=== PATIENT | female | born 1965 | race Caucasian/White ===

== ENCOUNTER 2025-10-22 19:20 | Inpatient (IN) | payer MEDICAID, OTHER ==
[~2025-10-22] VITALS: Ht 139.7 cm; Wt 51.7 kg
[2025-10-22 19:33] VITALS: O2SAT 98
[2025-10-22] MEDS: TETANUS, DIPHTHERIA, PERTUSSIS VAC/PF 0.5ML (>10YR OLD) IM ONE (20:11)
[2025-10-22] MEDS: ONDANSETRON HCL 4MG/2ML INJ IV ONE (23:04)
[2025-10-22] MEDS: MORPHINE SULFATE 4 MG/ML INJ (FOR IV/IM USE) IV ONE (23:05)
[2025-10-22 23:22] LABS: BASOPHILS % 0.4 % (0.0-2.0); EOSINOPHILS % 2.0 % (0.0-5.0); HEMATOCRIT. 30.2 % (36.0-48.0); HEMOGLOBIN. 10.2 g/dL (12.0-16.0); LYMPHOCYTES % 20.4 % (20.0-50.0); MEAN PLATELET VOLUME 8.9 fl (7.4-10.4); MONOCYTES % 5.4 % (2.0-8.0); NEUTROPHILS % 71.8 % (40.0-76.0); PLATELET 278 x1000/uL (130-400); RED BLOOD CELL COUNT 3.25 mill/uL (4.2-5.4); RED CELL DISTRIBUTION WIDTH 12.7 % (11.6-14.6)
[2025-10-22 23:32] LABS: CREATININE 1.5 mg/dL (0.6-1.0)
[2025-10-22 23:33] LABS: INR 1.0; UREA NITROGEN BLOOD 29 mg/dL (9-23)
[2025-10-22 23:34] LABS: ASPARTATE AMINOTRANSFERASE 14 IU/L (<34)
[2025-10-22 23:35] LABS: BILIRUBIN DIRECT < 0.1 mg/dL (<=3.0); BILIRUBIN TOTAL 0.4 mg/dL (0.1-1.0); PROTEIN TOTAL 7.7 g/dL (6.0-8.3)
[2025-10-23] MEDS: LABETALOL 5MG/ML 4ML INJ IV ONE (03:05)
[2025-10-23 05:44] VITALS: BP 155/70; PULSE 79; RESP 20; TEMP 37.7524
[2025-10-23] MEDS ORDERED: METF-416 PO (06:30)
[2025-10-23] MEDS ORDERED: januvia (06:30)
[2025-10-23] MEDS ORDERED: NALOXONE HCL 0.4MG/ML VIAL IV PRN (07:00)
[2025-10-23] MEDS ORDERED: BLOOD SUGAR DIAGNOSTIC STRIP TEST SCH (07:10)
[2025-10-23] MEDS ORDERED: DEXTROSE 50% WATER 50ML SYRINGE IV PRN (07:15)
[2025-10-23] MEDS: BLOOD SUGAR DIAGNOSTIC STRIP TEST SCH (07:30)
[2025-10-23 08:30] VITALS: BP 159/80; PULSE 90; RESP 18; TEMP 36.9; O2SAT 97
[2025-10-23] MEDS: INSULIN LISPRO 100 UNITS/ML SUBCUT SCH (09:52)
[2025-10-23] MEDS: LOSARTAN 50 MG TABLET PO SCH (09:54)
[2025-10-23] MEDS: INSULIN GLARGINE 100 UNITS/ML SUBCUT SCH (11:29)
[2025-10-23 12:00] VITALS: BP 155/71; PULSE 82; RESP 18; TEMP 36.7; O2SAT 98
[2025-10-23] MEDS: MORPHINE SULFATE 2 MG/ML INJ (NOT FOR IM USE) IV PRN (15:04)
[2025-10-23 16:00] VITALS: BP 160/77; PULSE 86; RESP 18; TEMP 36.6; O2SAT 97
[2025-10-23 20:00] VITALS: BP 170/75; PULSE 89; RESP 18; TEMP 36.5; O2SAT 98
[2025-10-23 22:01] LABS: BASOPHILS % 0.4 % (0.0-2.0); EOSINOPHILS % 6.2 % (0.0-5.0); HEMATOCRIT. 27.8 % (36.0-48.0); HEMOGLOBIN. 9.4 g/dL (12.0-16.0); LYMPHOCYTES % 36.8 % (20.0-50.0); MEAN PLATELET VOLUME 9.1 fl (7.4-10.4); MONOCYTES % 8.2 % (2.0-8.0); NEUTROPHILS % 48.4 % (40.0-76.0); PLATELET 230 x1000/uL (130-400); RED BLOOD CELL COUNT 2.97 mill/uL (4.2-5.4); RED CELL DISTRIBUTION WIDTH 12.8 % (11.6-14.6)
[2025-10-23 22:35] LABS: CREATININE 1.7 mg/dL (0.6-1.0); TRIGLYCERIDE 225.0 mg/dL (0-150); UREA NITROGEN BLOOD 25.0 mg/dL (9-23)
[2025-10-23 22:36] LABS: LDL CHOLESTEROL 192.0 mg/dL (5-100)
[2025-10-24] VITALS: BP 130/73; PULSE 87; RESP 18; TEMP 36.6
[2025-10-24 04:00] VITALS: BP 165/80; PULSE 98; RESP 18; TEMP 36.1; O2SAT 98
[2025-10-24 08:00] VITALS: BP 142/70; PULSE 75; RESP 17; TEMP 36.4; O2SAT 97
[2025-10-24 12:00] VITALS: BP 146/72; PULSE 89; RESP 18; TEMP 36.7; O2SAT 98
[2025-10-24 16:00] VITALS: BP_SYST 139; BP_SYST 155; BP_DIAS 75; BP_DIAS 87; PULSE 92; PULSE 95; RESP 18; RESP 20; TEMP 36.4; TEMP 37; O2SAT 95; O2SAT 98
[2025-10-24 16:35] LABS: CLARITY URINE CLOUDY (CLEAR); COLOR URINE YELLOW (YELLOW); GLUCOSE URINE NEGATIVE (NEGATIVE); KETONES URINE NEGATIVE (NEGATIVE); LEUKOCYTE ESTERASE URINE 2+ (NEGATIVE); NITRITE URINE NEGATIVE (NEGATIVE); OCCULT BLOOD URINE TRACE (NEGATIVE); PH URINE 5.0 (4.5-8.0); PROTEIN URINE 3+ (NEGATIVE); SPECIFIC GRAVITY URINE 1.016 (1.005-1.030); UROBILINOGEN URINE 0.2 E.U./dL (0.2-1.0)
[2025-10-24 18:36] LABS: RBC URINE NONE SEEN /hpf (0-2); WBC URINE TNTC /hpf (0-2)
[2025-10-24 18:37] LABS: BACTERIA URINE TRACE; MUCUS URINE 1+ /lpf (< = 2+); SQUAMOUS EPITHELIAL CELL URINE 2+ /lpf (RARE/1+)
[2025-10-24 20:45] VITALS: BP 178/81; PULSE 85; RESP 18; TEMP 36.1; O2SAT 97
[2025-10-24] MEDS ORDERED: VANCOMYCIN HCL 1GM VIAL ONE (21:12)
[2025-10-24] MEDS ORDERED: FAMOTIDINE 20MG/2ML VIAL IV ONE (21:38)
[2025-10-24] MEDS ORDERED: ACETAMINOPHEN 1000MG/100ML 100 ML IV ONE (21:38)
[2025-10-24] MEDS ORDERED: PROPOFOL 10MG/ML 100ML 100 ML IV ONE (21:39)
[2025-10-24] MEDS ORDERED: ONDANSETRON HCL 4MG/2ML INJ ONE (21:42)
[2025-10-24] MEDS ORDERED: DEXAMETHASONE 4MG/ML 1ML VIAL ONE (21:42)
[2025-10-24] MEDS ORDERED: PROPOFOL 200MG/20ML VIAL IV ONE (21:43)
[2025-10-24] MEDS ORDERED: MIDAZOLAM HCL 2 MG/2 ML VIAL ONE (21:44)
[2025-10-24] MEDS ORDERED: PHENYLEPHRINE HCL 10MG/ML 1ML IV ONE (21:46)
[2025-10-24] MEDS ORDERED: HYDROMORPHONE HCL/PF 1MG/ML INJ ONE (22:10)
[2025-10-24] MEDS ORDERED: TRANEXAMIC ACID 1000MG PREMIX 100 ML IV ONE (22:13)
[2025-10-24] MEDS ORDERED: HYDRALAZINE 20MG/ML VIAL IV PRN (22:45)
[2025-10-24] MEDS ORDERED: LABETALOL 5MG/ML 4ML INJ IV PRN (22:45)
[2025-10-24] MEDS ORDERED: HYDROMORPHONE HCL/PF 1MG/ML INJ IV PRN (22:45)
[2025-10-24] MEDS: CEFAZOLIN 1000MG PREMIX 50 ML IV SCH (23:00)
[2025-10-24] MEDS: HYDRALAZINE 20MG/ML VIAL IV PRN (23:22)
[2025-10-24] MEDS: ONDANSETRON HCL 4MG/2ML INJ IV PRN (23:49)
[2025-10-25] MEDS: METOCLOPRAMIDE HCL 10MG/2ML VIAL IV NR (00:34)
[2025-10-25] MEDS: DIPHENHYDRAMINE 50MG/ML VIAL IV NR (00:41)
[2025-10-25 00:56] VITALS: BP 146/74; PULSE 112; RESP 18; TEMP 35.9; O2SAT 99
[2025-10-25 04:00] VITALS: BP 132/76; PULSE 101; RESP 18; TEMP 36.1; O2SAT 97
[2025-10-25 08:00] VITALS: BP 155/77; PULSE 110; RESP 18; TEMP 36.4; O2SAT 100
[2025-10-25] MEDS: ASPIRIN 325MG EC TABLET PO SCH (09:15)
[2025-10-25 12:15] VITALS: BP 148/84; PULSE 102; RESP 18; TEMP 36.4; O2SAT 100
[2025-10-25] MEDS: HYDROCODONE/ACETAMINOPHEN 5/325MG TABLET PO PRN (12:24)
[2025-10-25] MEDS: SODIUM CHLORIDE 0.45% 1,000 ML IV SCH (12:46)
[2025-10-25] MEDS: INSULIN LISPRO 100 UNITS/ML SUBCUT SCH (12:49)
[2025-10-25 16:00] VITALS: BP 155/58; PULSE 96; RESP 18; TEMP 37.1; O2SAT 100
[2025-10-25 20:00] VITALS: BP 160/71; PULSE 99; RESP 18; TEMP 36.2; O2SAT 97
[2025-10-25] MEDS ORDERED: ONDANSETRON HCL 4MG/2ML INJ IV PRN (20:30)
[2025-10-25] MEDS: ATORVASTATIN CALCIUM 40MG TABLET PO SCH (20:32)
[2025-10-25] MEDS: ONDANSETRON HCL 4MG/2ML INJ IV PRN (20:32)
[2025-10-25] MEDS: METOPROLOL TARTRATE 25MG TABLET PO SCH (20:35)
[2025-10-26] VITALS: BP_SYST 112; BP_SYST 145; BP_SYST 160; BP_DIAS 57; BP_DIAS 68; BP_DIAS 71; PULSE 68; PULSE 99; RESP 18; TEMP 36.2; O2SAT 97; O2SAT 98
[2025-10-26 04:00] VITALS: BP_SYST 112; BP_SYST 145; BP_DIAS 57; BP_DIAS 68; PULSE 8; PULSE 86; RESP 1; RESP 18; TEMP 36.2; TEMP 36.6; O2SAT 98
[2025-10-26 08:00] VITALS: BP 119/63; PULSE 79; RESP 18; TEMP 36.5; O2SAT 100
[2025-10-26 09:06] LABS: BASOPHILS % 0.3 % (0.0-2.0); EOSINOPHILS % 4.5 % (0.0-5.0); HEMATOCRIT. 23.4 % (36.0-48.0); HEMOGLOBIN. 7.7 g/dL (12.0-16.0); LYMPHOCYTES % 38.6 % (20.0-50.0); MEAN PLATELET VOLUME 9.2 fl (7.4-10.4); MONOCYTES % 9.7 % (2.0-8.0); NEUTROPHILS % 46.9 % (40.0-76.0); PLATELET 191 x1000/uL (130-400); RED BLOOD CELL COUNT 2.48 mill/uL (4.2-5.4); RED CELL DISTRIBUTION WIDTH 12.5 % (11.6-14.6)
[2025-10-26 09:10] LABS: UREA NITROGEN BLOOD 28 mg/dL (9-23)
[2025-10-26 09:11] LABS: CREATININE 1.7 mg/dL (0.6-1.0)
[2025-10-26 09:13] LABS: ASPARTATE AMINOTRANSFERASE 16 IU/L (<34); BILIRUBIN DIRECT < 0.1 mg/dL (<=3.0); PHOSPHORUS 3.4 mg/dL (2.5-4.9)
[2025-10-26 09:14] LABS: BILIRUBIN TOTAL 0.3 mg/dL (0.1-1.0); PROTEIN TOTAL 5.8 g/dL (6.0-8.3)
[2025-10-26 09:20] LABS: INR 1.0
[2025-10-26 12:00] VITALS: BP 153/74; PULSE 82; RESP 18; TEMP 36.4; O2SAT 97
[2025-10-26 16:00] VITALS: BP 154/88; PULSE 93; RESP 18; TEMP 36.6; O2SAT 100
[2025-10-26 20:00] VITALS: BP 124/69; PULSE 98; RESP 18; TEMP 36.6; O2SAT 97
[2025-10-27] VITALS: BP 144/55; PULSE 93; RESP 18; TEMP 36.4; O2SAT 98
[2025-10-27 04:00] VITALS: BP 136/69; PULSE 96; RESP 19; TEMP 36.2; O2SAT 98
[2025-10-27 06:31] LABS: INR 1.1
[2025-10-27 06:45] LABS: BASOPHILS % 0.3 % (0.0-2.0); EOSINOPHILS % 5.5 % (0.0-5.0); HEMATOCRIT. 22.4 % (36.0-48.0); HEMOGLOBIN. 7.4 g/dL (12.0-16.0); LYMPHOCYTES % 42.2 % (20.0-50.0); MEAN PLATELET VOLUME 9.3 fl (7.4-10.4); MONOCYTES % 9.3 % (2.0-8.0); NEUTROPHILS % 42.7 % (40.0-76.0); PLATELET 178 x1000/uL (130-400); RED BLOOD CELL COUNT 2.40 mill/uL (4.2-5.4); RED CELL DISTRIBUTION WIDTH 12.7 % (11.6-14.6)
[2025-10-27 06:50] LABS: CREATININE 1.6 mg/dL (0.6-1.0)
[2025-10-27 06:51] LABS: UREA NITROGEN BLOOD 30 mg/dL (9-23)
[2025-10-27 06:52] LABS: ASPARTATE AMINOTRANSFERASE 26 IU/L (<34)
[2025-10-27 06:53] LABS: BILIRUBIN DIRECT < 0.1 mg/dL (<=3.0); BILIRUBIN TOTAL 0.2 mg/dL (0.1-1.0); PHOSPHORUS 2.8 mg/dL (2.5-4.9); PROTEIN TOTAL 5.7 g/dL (6.0-8.3)
[2025-10-27 08:00] VITALS: BP 122/60; PULSE 75; RESP 18; TEMP 36.3; O2SAT 96
[2025-10-27] MEDS: CEFTRIAXONE 1GM/50ML 50 ML IV SCH (09:34)
[2025-10-27 12:00] VITALS: BP 141/56; PULSE 74; RESP 18; TEMP 36.9; O2SAT 95
[2025-10-27 16:00] VITALS: BP 146/55; PULSE 78; RESP 20; TEMP 36.7; O2SAT 98
[2025-10-27 20:00] VITALS: BP 143/82; PULSE 92; RESP 18; TEMP 36.9; O2SAT 97
[2025-10-28] VITALS: BP 138/70; PULSE 80; RESP 18; TEMP 36.9; O2SAT 98
[2025-10-28 04:00] VITALS: BP 127/68; PULSE 78; RESP 22; TEMP 37.1; O2SAT 97
[2025-10-28 08:00] VITALS: BP 126/74; PULSE 70; RESP 18; TEMP 36.7; O2SAT 98
[2025-10-28 12:00] VITALS: BP 150/69; PULSE 73; RESP 18; TEMP 36.3; O2SAT 97
[2025-10-28] MEDS: MEROPENEM 1G/100ML 100 ML IV SCH (14:55)
[2025-10-28 16:00] VITALS: BP 138/60; PULSE 75; RESP 18; TEMP 36.4; O2SAT 99
[2025-10-28] MEDS ORDERED: DOCUSATE SODIUM 250MG CAPSULE PO PRN (18:00)
[2025-10-28 20:00] VITALS: BP 161/71; PULSE 82; RESP 20; TEMP 37; O2SAT 99
[2025-10-29] VITALS (7 sets, daily range): BP systolic 130–171; BP diastolic 58–80; PULSE 65–80; RESP 17–18; TEMP 36.2–37.2; O2SAT 96–99
[2025-10-29] MEDS: ACETAMINOPHEN 325MG TABLET PO PRN (00:12)
[2025-10-30] VITALS: BP 148/62; PULSE 82; RESP 16; TEMP 36.4; O2SAT 99
[2025-10-30 04:00] VITALS: BP 156/62; PULSE 72; RESP 20; TEMP 36.8; O2SAT 99
[2025-10-30 08:00] VITALS: BP 166/65; PULSE 81; RESP 18; TEMP 36.6; O2SAT 97
[2025-10-30 12:00] VITALS: BP 130/75; PULSE 70; RESP 19; TEMP 36.5; O2SAT 97
[2025-10-30 16:00] VITALS: BP 155/65; PULSE 71; RESP 18; TEMP 36.6; O2SAT 98
[2025-10-30] MEDS: LACTULOSE 20G/30ML UDC PO PRN (16:34)
[2025-10-30 20:00] VITALS: BP 161/71; PULSE 80; RESP 20; TEMP 36.4; O2SAT 98
[2025-10-31] VITALS: BP 171/75; PULSE 79; RESP 20; TEMP 36.8; O2SAT 97
[2025-10-31] MEDS: CLONIDINE 0.1MG TABLET PO PRN (00:52)
[2025-10-31 04:00] VITALS: BP 106/57; PULSE 66; RESP 20; TEMP 36.3; O2SAT 98
[2025-10-31 08:00] VITALS: BP 122/50; PULSE 64; RESP 17; TEMP 36.4; O2SAT 98
[2025-10-31 12:00] VITALS: BP 102/51; PULSE 58; RESP 18; TEMP 36.7; O2SAT 98
[2025-10-31 16:00] VITALS: BP 135/54; PULSE 68; RESP 17; TEMP 36.9; O2SAT 98
[2025-10-31 20:00] VITALS: BP 141/60; PULSE 70; RESP 20; TEMP 35.8; O2SAT 98
[2025-11-01] VITALS: BP 146/56; PULSE 76; RESP 20; TEMP 35.8; O2SAT 98
[2025-11-01 04:00] VITALS: BP 132/55; PULSE 71; RESP 20; TEMP 36.1; O2SAT 96
[2025-11-01 08:00] VITALS: BP 138/66; PULSE 70; RESP 20; TEMP 36.2; O2SAT 97
[2025-11-01 12:00] VITALS: BP 141/60; PULSE 68; RESP 20; TEMP 36.2; O2SAT 97
[2025-11-01 16:00] VITALS: BP 152/68; PULSE 73; RESP 20; TEMP 36.2; O2SAT 97
[2025-11-01 20:00] VITALS: BP 149/59; PULSE 71; RESP 19; TEMP 36.2; O2SAT 96
[2025-11-02 04:00] VITALS: BP 131/57; PULSE 75; RESP 19; TEMP 36.3; O2SAT 96
[2025-11-02 08:00] VITALS: BP 165/76; PULSE 75; RESP 17; TEMP 36.4; O2SAT 97
[2025-11-02 09:18] LABS: CREATININE 1.4 mg/dL (0.6-1.0); UREA NITROGEN BLOOD 30.0 mg/dL (9-23)
[2025-11-02 12:00] VITALS: BP 144/68; PULSE 74; RESP 18; TEMP 36.6; O2SAT 97
[2025-11-02 16:00] VITALS: BP 157/63; PULSE 69; RESP 17; TEMP 36.4; O2SAT 98
[2025-11-02 20:00] VITALS: BP 152/60; PULSE 72; RESP 19; TEMP 36.6; O2SAT 100
[2025-11-03] VITALS (11 sets, daily range): BP systolic 112–192; BP diastolic 50–74; PULSE 58–82; RESP 16–20; TEMP 36.2–36.8; O2SAT 95–100
[2025-11-03 07:13] LABS: BASOPHILS % 0.4 % (0.0-2.0); EOSINOPHILS % 6.1 % (0.0-5.0); LYMPHOCYTES % 48.5 % (20.0-50.0); MEAN PLATELET VOLUME 8.2 fl (7.4-10.4); MONOCYTES % 6.9 % (2.0-8.0); NEUTROPHILS % 38.1 % (40.0-76.0); PLATELET 319 x1000/uL (130-400); RED BLOOD CELL COUNT 2.13 mill/uL (4.2-5.4); RED CELL DISTRIBUTION WIDTH 12.7 % (11.6-14.6)
[2025-11-03 07:33] LABS: CREATININE 1.4 mg/dL (0.6-1.0)
[2025-11-03 07:34] LABS: UREA NITROGEN BLOOD 30.0 mg/dL (9-23)
[2025-11-03 08:15] LABS: HEMATOCRIT. 19.8 % (36.0-48.0); HEMOGLOBIN. 6.6 g/dL (12.0-16.0)
[2025-11-04] VITALS: BP 160/66; PULSE 59; RESP 20; TEMP 36.3; O2SAT 95
[2025-11-04 02:43] LABS: BASOPHILS % 0.5 % (0.0-2.0); EOSINOPHILS % 7.9 % (0.0-5.0); HEMATOCRIT. 25.8 % (36.0-48.0); HEMOGLOBIN. 8.6 g/dL (12.0-16.0); LYMPHOCYTES % 40.0 % (20.0-50.0); MEAN PLATELET VOLUME 8.5 fl (7.4-10.4); MONOCYTES % 5.4 % (2.0-8.0); NEUTROPHILS % 46.2 % (40.0-76.0); PLATELET 361 x1000/uL (130-400); RED BLOOD CELL COUNT 2.82 mill/uL (4.2-5.4); RED CELL DISTRIBUTION WIDTH 13.3 % (11.6-14.6)
[2025-11-04 04:00] VITALS: BP 150/61; PULSE 54; RESP 20; TEMP 36.3; O2SAT 100
[2025-11-04 08:00] VITALS: BP 134/60; PULSE 60; RESP 18; TEMP 36.3; O2SAT 100
[2025-11-04 11:37] LABS: CREATININE 1.4 mg/dL (0.6-1.0); UREA NITROGEN BLOOD 38.0 mg/dL (9-23)
[2025-11-04 12:00] VITALS: BP 134/52; PULSE 62; RESP 18; TEMP 36.6; O2SAT 100
[2025-11-04 15:15] VITALS: BP 148/60; PULSE 60; RESP 18; TEMP 97.3
[2025-11-04 16:00] VITALS: BP 117/47; PULSE 54; RESP 17; TEMP 36.4; O2SAT 100
== END 2025-11-04 18:43 | DRG 323 ==
LOC: ER 19:20 → 8WST 10-23 01:16 → EDBEDREQ 10-23 03:15 → EDBEDREQDT 10-23 03:15 → EDBEDREQTM 10-23 03:15 → CANRESERV 10-23 04:12 → ENRESERV 10-23 04:12 → 6EST 10-29 01:40
PROVIDERS: ADMIT Internal Medicine; ATTEND Internal Medicine
PROC: 0HQ0XZZ Repair Scalp Skin, External Approach (ICD-10-PCS; 2025-10-23)
PROC: 0SRS0JZ Replacement of Left Hip Joint, Femoral Surface with Synthetic Substitute, Open Approach (ICD-10-PCS; principal; 2025-10-24)
PROC: 30233N1 Transfusion of Nonautologous Red Blood Cells into Peripheral Vein, Percutaneous Approach (ICD-10-PCS; 2025-11-03)
DX: S72.092A Other fracture of head and neck of left femur, initial encounter for closed fracture (principal); N17.0 Acute kidney failure with tubular necrosis; I16.0 Hypertensive urgency; E11.22 Type 2 diabetes mellitus with diabetic chronic kidney disease; D64.9 Anemia, unspecified; E11.65 Type 2 diabetes mellitus with hyperglycemia; N39.0 Urinary tract infection, site not specified; N18.9 Chronic kidney disease, unspecified; I12.9 Hypertensive chronic kidney disease with stage 1 through stage 4 chronic kidney disease, or unspecified chronic kidney disease; S01.01XA Laceration without foreign body of scalp, initial encounter; Z16.12 Extended spectrum beta lactamase (ESBL) resistance; E78.00 Pure hypercholesterolemia, unspecified; W18.39XA Other fall on same level, initial encounter; Y93.89 Activity, other specified; Y92.89 Other specified places as the place of occurrence of the external cause; Y99.8 Other external cause status
CPT/HCPCS: 12001; 36415; 72170; 80048; 80061; 80076; 81003; 82962; 83036; 83735; 83880; 84100; 85014; 85018; 85025; 86850; 86900; 86920; 87077; 87186; 88311; 90715; 93005; 93970; 97110; 97116; 97162; 97530; 99285; A4606; A4615; J0360; J0690; J0696; J1100; J1171; J1200; J1308; J1815; J2185; J2250; J2270; J2371; J2405; J2704; J2765; J3373; J3490; P9016; C1776; J0131